=== PATIENT | male | born 1965 | race African-American/Black ===

== ENCOUNTER 2021-06-17 22:39 | Emergency (ER) | payer OTHER ==
[~2021-06-17] VITALS: Ht 188 cm; Wt 112.5 kg
[2021-06-18 00:41] VITALS: BP 147/84
== END 2021-06-18 01:17 | disposition home or self-care (01) ==
LOC: EDBD 22:39 → ER 22:44
DX: S43.402A Unspecified sprain of left shoulder joint, initial encounter (principal); S29.012A Strain of muscle and tendon of back wall of thorax, initial encounter; E66.9 Obesity, unspecified; Z68.31 Body mass index [BMI] 31.0-31.9, adult; Z88.0 Allergy status to penicillin; V89.2XXA Person injured in unspecified motor-vehicle accident, traffic, initial encounter; Y93.I9 Activity, other involving external motion; Y92.89 Other specified places as the place of occurrence of the external cause; Y99.8 Other external cause status
CPT/HCPCS: 73030